=== PATIENT | male | born 1995 | race Caucasian/White ===

== ENCOUNTER 2024-02-24 09:04 | Emergency (ER) | payer MEDICAID ==
[~2024-02-24] VITALS: Ht 180.3 cm; Wt 108.0 kg
[~2024-02-24 09:04] MED LIST: NOCURR
[2024-02-24 09:09] VITALS: TEMP 98.7
[2024-02-24] MEDS: HydrOXYzine HCL 25 MG TABLET PO ONE (09:27)
[2024-02-24] MEDS: KETOROLAC TROMETHAMINE 30 MG/ML VIAL IM ONE (09:27)
[2024-02-24] MEDS: ACETAMINOPHEN 325 MG TABLET PO ONE (09:28)
[2024-02-24] MEDS: LIDOCAINE 5% TRANSDERMAL PATCH TD ONE (09:28)
[2024-02-24 10:35] VITALS: BP 138/86; PULSE 72; RESP 18; O2SAT 99
== END 2024-02-24 11:03 | disposition home or self-care (01) ==
LOC: EMS 09:04
DX: S90.562A Insect bite (nonvenomous), left ankle, initial encounter (principal); L98.9 Disorder of the skin and subcutaneous tissue, unspecified; W57.XXXA Bitten or stung by nonvenomous insect and other nonvenomous arthropods, initial encounter; Y93.89 Activity, other specified; Y92.89 Other specified places as the place of occurrence of the external cause; Y99.8 Other external cause status
CPT/HCPCS: 99284; 96372; J1885